=== PATIENT | female | born 1930 | race Caucasian/White ===

== ENCOUNTER 2016-12-01 09:38 | Outpatient (CLI) | payer MEDICARE, BC | END 2016-12-01 09:39 | disposition home or self-care (01) | DX: R41.0 Disorientation, unspecified (principal); N28.9 Disorder of kidney and ureter, unspecified; I10 Essential (primary) hypertension ==

== ENCOUNTER 2016-12-05 14:52 | Observation (INO) | payer MEDICARE, BC ==
[2016-12-05] MEDS ORDERED: SODIUM CHLORIDE 0.9% 1,000 ML IV ONE (16:23)
[2016-12-05] MEDS ORDERED: ASPIRIN 325 MG TABLET PO STA (17:33)
[2016-12-05] MEDS ORDERED: ASPIRIN CHEW 81 MG TABLET ONE (17:42)
[2016-12-05] MEDS ORDERED: SODIUM CHLORIDE FLUSH 0.9% 10 ML SYRINGE IVP PRN (18:30)
[2016-12-05] MEDS ORDERED: ONDANSETRON 4 MG/2 ML VIAL IVP PRN (18:30)
[2016-12-05] MEDS ORDERED: HYDROcod/ACETAM 5/325 MG TABLET PO PRN (18:30)
[2016-12-05] MEDS ORDERED: hydrALAZINE INJ 20 MG/ML VIAL IVP PRN (18:57)
[2016-12-05] MEDS: SODIUM CHLORIDE FLUSH 0.9% 10 ML SYRINGE IVP SCH (20:14)
[2016-12-05] MEDS: SODIUM CHLORIDE 0.45% 1,000 ML IV SCH (20:14)
[2016-12-05] MEDS: BRINZOLAMIDE 1% OPHTH DROPS EACHEYE SCH (20:23)
[2016-12-05] MEDS ORDERED: ATORVASTATIN 10 MG TABLET PO SCH (21:00)
[2016-12-06] MEDS: SODIUM CHLORIDE FLUSH 0.9% 10 ML SYRINGE IVP SCH (05:55)
[2016-12-06] MEDS ORDERED: amLODIPine 5 MG TABLET PO SCH ×2 (09:00)
[2016-12-06] MEDS ORDERED: ENOXAPARIN 40 MG/0.4 ML SYRINGE SUBQ SCH (09:00)
[2016-12-06] MEDS ORDERED: ASPIRIN EC 81 MG TABLET PO SCH (09:00)
[2016-12-06] MEDS ORDERED: LOSARTAN 50 MG TABLET PO SCH (09:00)
[2016-12-06] MEDS ORDERED: POLYETHYLENE GLYCOL 3350 17 GM PACKET PO SCH (09:00)
[2016-12-06] MEDS ORDERED: FAMOTIDINE 20 MG TABLET PO SCH (09:00)
[2016-12-06] MEDS: SODIUM CHLORIDE 0.45% 1,000 ML IV SCH (09:03)
[2016-12-06] MEDS: BRINZOLAMIDE 1% OPHTH DROPS EACHEYE SCH (09:03)
[2016-12-06] MEDS ORDERED: MORPHINE 2 MG/ML SYRINGE IVP PRN (11:00)
== END 2016-12-06 15:22 | disposition home or self-care (01) ==
DX: E86.0 Dehydration (principal); R26.89 Other abnormalities of gait and mobility; K59.00 Constipation, unspecified; Z95.0 Presence of cardiac pacemaker; I10 Essential (primary) hypertension; I45.10 Unspecified right bundle-branch block; Z79.82 Long term (current) use of aspirin; R19.7 Diarrhea, unspecified; K57.30 Diverticulosis of large intestine without perforation or abscess without bleeding; E78.00 Pure hypercholesterolemia, unspecified; H40.9 Unspecified glaucoma; H35.30 Unspecified macular degeneration; Z85.038 Personal history of other malignant neoplasm of large intestine; Z85.828 Personal history of other malignant neoplasm of skin; Z88.2 Allergy status to sulfonamides; Z88.0 Allergy status to penicillin; Z88.8 Allergy status to other drugs, medicaments and biological substances; Z91.81 History of falling; Z90.49 Acquired absence of other specified parts of digestive tract
CPT/HCPCS: 36415; 70450; 74000; 80048; 80053; 81003; 83540; 83605; 83690; 83735; 84295; 84466; 84484; 85025; 93005; 93010; 93306; 93880; 96360; 96361; 96372; 99284; 99285; A9270; G0378; J1650

== ENCOUNTER 2016-12-22 17:32 | Inpatient (IN) | payer MEDICARE, BC ==
[2016-12-22] MEDS ORDERED: cefTRIAXone 1 GM in SODIUM CHLORIDE 0.9% MINIBAG 100 ML IV STA (19:04)
[2016-12-22] MEDS ORDERED: cefTRIAXone 1 GM VIAL ONE (19:07)
[2016-12-22] MEDS ORDERED: SODIUM CHLORIDE 0.9% 1,000 ML IV ONE (19:07)
[2016-12-22] MEDS ORDERED: HYDROcod/ACETAM 5/325 MG TABLET PO PRN (20:31)
[2016-12-22] MEDS ORDERED: ACETAMINOPHEN 325 MG TABLET PO PRN (20:31)
[2016-12-22] MEDS ORDERED: SODIUM CHLORIDE 0.9% 1,000 ML IV SCH (21:00)
[2016-12-22] MEDS: ATORVASTATIN 10 MG TABLET PO SCH (22:06)
[2016-12-22] MEDS: SODIUM CHLORIDE FLUSH 0.9% 10 ML SYRINGE IVP SCH (22:06)
[2016-12-23] MEDS: BRINZOLAMIDE 1% OPHTH DROPS EACHEYE SCH ×3 (07:23→20:52)
[2016-12-23] MEDS ORDERED: DEXTROSE 5% 1,000 ML IV SCH (08:00)
[2016-12-23] MEDS ORDERED: WHEAT DEXTRIN POWDER PACKET PO PRN (08:29)
[2016-12-23] MEDS ORDERED: cefTRIAXone 500 MG VIAL IVP SCH (09:00)
[2016-12-23] MEDS: SODIUM CHLORIDE FLUSH 0.9% 10 ML SYRINGE IVP SCH ×3 (09:03→20:55)
[2016-12-23] MEDS: LOSARTAN 50 MG TABLET PO SCH (09:04)
[2016-12-23] MEDS: amLODIPine 5 MG TABLET PO SCH (09:04)
[2016-12-23] MEDS: cefTRIAXone 1 GM in SODIUM CHLORIDE 0.9% MINIBAG 100 ML IV SCH (09:04)
[2016-12-23] MEDS: ASPIRIN EC 81 MG TABLET PO SCH (09:05)
[2016-12-23] MEDS ORDERED: PSYLLIUM PACKET PO PRN (09:15)
[2016-12-23] MEDS: POLYETHYLENE GLYCOL 3350 17 GM PACKET PO SCH (09:52)
[2016-12-23] MEDS: SODIUM CHLORIDE FLUSH 0.9% 10 ML SYRINGE IVP PRN (10:16)
[2016-12-23] MEDS: ATORVASTATIN 10 MG TABLET PO SCH (20:51)
[2016-12-24] MEDS: SODIUM CHLORIDE FLUSH 0.9% 10 ML SYRINGE IVP SCH (06:14)
[2016-12-24] MEDS: POLYETHYLENE GLYCOL 3350 17 GM PACKET PO SCH (08:23)
[2016-12-24] MEDS: ASPIRIN EC 81 MG TABLET PO SCH (08:26)
[2016-12-24] MEDS: BRINZOLAMIDE 1% OPHTH DROPS EACHEYE SCH (08:26)
[2016-12-24] MEDS: cefTRIAXone 1 GM in SODIUM CHLORIDE 0.9% MINIBAG 100 ML IV SCH (08:26)
[2016-12-24] MEDS: LOSARTAN 50 MG TABLET PO SCH (08:26)
[2016-12-24] MEDS: amLODIPine 5 MG TABLET PO SCH (08:26)
[2016-12-24] MEDS: SODIUM CHLORIDE FLUSH 0.9% 10 ML SYRINGE IVP PRN (08:32)
== END 2016-12-24 09:34 | disposition home or self-care (01) | DRG 690 ==
DX: N30.00 Acute cystitis without hematuria (principal); E87.1 Hypo-osmolality and hyponatremia; I10 Essential (primary) hypertension; I49.9 Cardiac arrhythmia, unspecified; E78.00 Pure hypercholesterolemia, unspecified; B96.20 Unspecified Escherichia coli [E. coli] as the cause of diseases classified elsewhere; E87.70 Fluid overload, unspecified; K59.00 Constipation, unspecified; R19.7 Diarrhea, unspecified; I12.9 Hypertensive chronic kidney disease with stage 1 through stage 4 chronic kidney disease, or unspecified chronic kidney disease; N18.9 Chronic kidney disease, unspecified; I45.9 Conduction disorder, unspecified; Z66 Do not resuscitate; Z85.038 Personal history of other malignant neoplasm of large intestine; Z90.49 Acquired absence of other specified parts of digestive tract; Z95.0 Presence of cardiac pacemaker; Z79.82 Long term (current) use of aspirin; Z85.828 Personal history of other malignant neoplasm of skin; Z87.19 Personal history of other diseases of the digestive system

== ENCOUNTER 2016-12-29 13:14 | Outpatient (CLI) | payer MEDICARE, BC | END 2016-12-29 13:15 | disposition home or self-care (01) | DX: R41.0 Disorientation, unspecified (principal); N28.9 Disorder of kidney and ureter, unspecified; I10 Essential (primary) hypertension ==

== ENCOUNTER 2017-02-05 14:08 | Outpatient (CLI) | payer MEDICARE, BC | END 2017-02-05 14:09 | disposition home or self-care (01) | DX: E87.1 Hypo-osmolality and hyponatremia (principal); R41.0 Disorientation, unspecified; N28.9 Disorder of kidney and ureter, unspecified; I10 Essential (primary) hypertension ==

== ENCOUNTER 2017-10-05 11:11 | Emergency (ER) | payer MEDICARE, BC ==
[2017-10-05 12:14] LABS: BASOPHILS % (AUTO) 0.3 %; EOSINOPHILS # (AUTO) 0.1 10^3/uL (0.0-0.7); EOSINOPHILS % (AUTO) 0.8 %; HGB - HEMOGLOBIN 12.9 g/dL (12.0-16.0); LYMPHOCYTES # (AUTO) 2.7 10^3/uL (1.5-3.5); LYMPHOCYTES % (AUTO) 30.7 %; MEAN CORPUSCULAR HEMOGLOBIN 27.5 pg (27.0-31.0); MEAN CORPUSCULAR HGB CONC 32.8 g/dL (32.0-36.0); MEAN PLATELET VOLUME 8.1 fL (7.9-10.8); MONOCYTES # (AUTO) 0.5 10^3/uL (0.0-1.0); NEUTROPHILS # (AUTO) 5.5 10^3/uL (1.5-6.6); NEUTROPHILS % (AUTO) 62.2 %; PLT - PLATELET COUNT 178 10^3/uL (130-450); RED CELL DISTRIBUTION WIDTH 14.9 % (12.0-15.0); WHITE BLOOD COUNT 8.8 x10^3/uL (4.8-10.8)
[2017-10-05 12:28] LABS: ALBUMIN 4.1 g/dL (3.2-5.5); ALBUMIN/GLOBULIN RATIO 1.3 (1.0-2.2); BILIRUBIN,TOTAL 0.5 mg/dL (0.2-1.0); CALCIUM 9.5 mg/dL (8.5-10.3); TOTAL PROTEIN 7.2 g/dL (6.7-8.2)
--- NOTE | 2017-10-05 13:24 | ED Physician Documentation ---
PD HPI FOCAL NEURO - Stated complaint Stated Complaint: CONFUSION - Chief complaint Chief Complaint: Neuro - History obtained from History obtained from: Patient, Family - History of Present Illness Timing - onset: Other (This is an 87-year-old woman with history of pacemaker who was admitted in [place] for hyponatremia in August. She also had a recent UTI. She presents with several days of increasing somnolence, confusion. Per the son she would normally know the date and who the president was, she can name neither now, she has no specific complaints. She denies headache, pedal edema, shortness of breath, chest pain.) Review of Systems Ten Systems: 10 systems reviewed and negative Constitutional: denies: Fever, Chills Cardiac: denies: Chest pain / pressure, Palpitations Respiratory: denies: Dyspnea, Cough PD PAST MEDICAL HISTORY - Past Medical History Cardiovascular: Hypertension, High cholesterol, Arrhythmia, Other Respiratory: Asthma, Shortness of breath Endocrine/Autoimmune: None GI: Colon polyps : None HEENT: Glaucoma, Macular degeneration, Other Psych: Claustrophobia Musculoskeletal: Osteoarthritis, Osteoporosis Derm: Other - Past Surgical History Past Surgical History: Yes General: Cholecystectomy, Appendectomy, 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 Cardiovascular: Pacemaker HEENT: Cataracts - Present Medications Home Medications: Ambulatory Orders Medication Instructions Recorded Confirmed Aspirin [Aspir 81] 81 mg PO DAILY 08/19/13 10/05/17 Losartan [Cozaar] 100 mg PO DAILY 08/19/13 10/05/17 Atorvastatin [Lipitor] 20 mg PO QPM 07/25/16 10/05/17 Brinzolamide [Azopt] 1 drop EACHEYE BID 07/25/16 10/05/17 amLODIPine [Norvasc] 5 mg ORAL DAILY 07/25/16 10/05/17 Acetaminophen [Tylenol] 650 mg PO Q4HR PRN #0 tablet 12/24/16 10/05/17 Latanoprost 1 drops EACHEYE DAILY 10/05/17 10/05/17 Levofloxacin [Levaquin] 250 mg PO DAILY #3 tablet 10/05/17 Spironolactone 1 tab PO DAILY 10/05/17 10/05/17 - Allergies Allergies/Adverse Reactions: Allergies Allergy/AdvReac Type Severity Reaction Status Date / Time penicillin V potassium * Allergy Unknown unknown Verified 10/05/17 11:30 [From Clementine Roper] Sulfa (Sulfonamide Allergy Unknown unknown Verified 10/05/17 11:30 Antibiotics) lisinopril AdvReac Unknown unknown Verified 10/05/17 11:30 - Social History Does the pt smoke?: No Smoking Status: Never smoker Does the pt drink ETOH?: No Does the pt have substance abuse?: No - Immunizations Immunizations are current?: Yes - POLST Patient has POLST: No PD ED PE NORMAL - Vitals Vital signs reviewed: Yes - General General: Other (She is oriented to person and place but not time, 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 She thinks it is August 2017 but she has a hard time coming up with 2016. 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, Normal speech Eye Opening: Spontaneous Motor: Obeys Commands Verbal: Confused GCS Score: 14 - Psych Psych: Normal mood, Normal affect Results - Vitals Vitals: Vital Signs - 24 hr 10/05/17 10/05/17 11:25 13:12 Temperature 35.6 C L Heart Rate 69 63 Respiratory 16 17 Rate Blood Pressure 155/78 H 174/89 H O2 Saturation 99 96 Oxygen O2 Source Room air - Labs Labs: Laboratory Tests 10/05/17 10/05/17 10/05/17 12:07 12:07 14:25 WBC 8.8 RBC 4.70 Hgb 12.9 Hct 39.4 MCV 84.0 MCH 27.5 MCHC 32.8 RDW 14.9 Plt Count 178 MPV 8.1 Neut # 5.5 Lymph # 2.7 [place] # 0.5 Eos # 0.1 Baso # 0.0 Absolute Nucleated RBC 0.00 Nucleated RBC % 0.0 Sodium 135 Potassium 4.5 Chloride 97 L Carbon Dioxide 28 Anion Gap 10.0 BUN 32 H Creatinine 1.0 Estimated GFR (MDRD) 52 L Glucose 144 H Calcium 9.5 Total Bilirubin 0.5 AST 43 H ALT 38 Alkaline Phosphatase 93 Total Protein 7.2 Albumin 4.1 Globulin 3.1 Albumin/Globulin Ratio 1.3 Lipase 49 Urine Color YELLOW Urine Clarity CLEAR Urine pH 6.5 Ur Specific [place] 1.010 Urine Protein NEGATIVE Urine Glucose (UA) NEGATIVE Urine Ketones NEGATIVE Urine Occult Blood NEGATIVE Urine Nitrite POSITIVE H Urine Bilirubin NEGATIVE Urine Urobilinogen 0.2 (NORMAL) Ur Leukocyte Esterase TRACE H Urine RBC None Seen Urine WBC 4-5 Ur Squamous Epith Cells RARE Squamous Urine Bacteria Many H Ur Microscopic Review INDICATED Urine Culture Comments INDICATED - Rads (name of study) CT Head Radiology: EMP read contemporaneously (age related chgs, NAD) 2v chest Radiology: EMP read contemporaneously (borderline cardiomegaly, NAD) PD MEDICAL DECISION MAKING - ED course ED course: 87-year-old woman with recent admission for electrolyte abnormalities could not presents with confusion similar to prior but her electrolytes are fine and is found to have a UTI. She does not appear significantly ill and the family felt comfortable watching her at home. Departure - Departure Disposition: Home, Self Care Clinical Impression: Urinary tract infection Qualifiers: Urinary tract infection type: site unspecified Hematuria presence: without hematuria Qualified Code(s): N39.0 - Urinary tract infection, site not specified Altered mental status Qualifiers: Altered mental status type: disorientation Qualified Code(s): R41.0 - Disorientation, unspecified Condition: Good Record reviewed to determine appropriate education?: Yes Instructions: ED UTI Cystitis Female Prescriptions: Levofloxacin [Levaquin] 250 mg PO DAILY #3 tablet Comments: Call your doctor to arrange a follow-up appointment, make the next available appointment. In the interim, return anytime if worse or if new symptoms develop. Your blood pressure was elevated today on check into the emergency department. This does not mean that you have hypertension, it is a common phenomenon to come to the emergency department and have elevated blood pressure. I recommend that you see your primary care physician within the week to have it rechecked when you are feeling better. We will culture your urine, the results should be done in 48-72 hours. If an antibiotic change is necessary we will call you. Return if worse in the meantime, especially if you develop increasing flank pain, fevers, or cannot keep down the medication.
--- NOTE | 2017-10-05 13:55 | CT Report ---
EXAM: CT HEAD EXAM DATE: 10/05/2017 01:34 PM. CLINICAL HISTORY: Altered. COMPARISON: 12/22/2016. TECHNIQUE: Multiaxial CT images were obtained from the foramen magnum to the vertex. Reformats: Coron al. IV contrast: None. In accordance with CT protocol optimization, one or more of the following dose reduction techniques w ere utilized for this exam: automated exposure control, adjustment of mA and/or KV based on patient s ize, or use of iterative reconstructive technique. FINDINGS: Parenchyma: No intraparenchymal hemorrhage. No evidence of mass, midline shift, or CT findings of inf arction. [place]-white differentiation is distinct. Extraaxial Spaces: No change. No subdural or epidural collections identified. Ventricles: Normal in size and position. Sinuses and Orbits: Imaged paranasal sinuses, orbits, and mastoids show no significant abnormality. Bones: No evidence of fracture or calvarial defect. Other: None. IMPRESSION: No acute or focal intracranial abnormality. [facility] Referring Provider Line: [phone] SITE ID: [id number]
--- NOTE | 2017-10-05 13:58 | XRAY Report ---
EXAM: CHEST RADIOGRAPHY EXAM DATE: 10/05/2017 01:39 PM. CLINICAL HISTORY: Diminished R base BS. COMPARISON: 12/22/2016. TECHNIQUE: 2 views. FINDINGS: Lungs/Pleura: No focal opacities evident. No pleural effusion. No pneumothorax. Normal volumes. Mediastinum: Pacemaker leads are seen in the right atrium and right ventricle. The heart size is bord darrius enlarged. There is mild aortic tortuosity. Other: None. IMPRESSION: Borderline cardiomegaly. No acute airspace disease. [facility] Referring Provider Line: [phone] SITE ID: [id number]
[2017-10-05 14:36] LABS: BILIRUBIN,URINE NEGATIVE (NEGATIVE); CLARITY,URINE CLEAR (CLEAR); GLUCOSE, URINE (UA) NEGATIVE (NEGATIVE); KETONES,URINE (UA) NEGATIVE (NEGATIVE); LEUKOCYTE ESTERASE, URINE TRACE (NEGATIVE); NITRITE,URINE POSITIVE (NEGATIVE); OCCULT BLOOD,URINE NEGATIVE (NEGATIVE); PH,URINE 6.5 PH (5.0-7.5); PROTEIN,URINE NEGATIVE (NEGATIVE); UROBILINOGEN,URINE 0.2 (NORMAL) E.U./dL (NORMAL)
[2017-10-05 14:47] LABS: BACTERIA,URINE Many /HPF (None Seen); RBC,URINE None Seen /HPF (0-5); SQUAMOUS EPITHELIAL CELL,UR RARE Squamous (<= Few)
[2017-10-05] MEDS ORDERED: levoFLOXacin 250 MG TABLET PO STA (14:51)
[2017-10-05 15:08] VITALS: BP 131/11
== END 2017-10-05 15:16 | disposition home or self-care (01) ==
LOC: ED 11:11
DX: N39.0 Urinary tract infection, site not specified (principal); R41.0 Disorientation, unspecified; Z87.440 Personal history of urinary (tract) infections; Z95.0 Presence of cardiac pacemaker; I10 Essential (primary) hypertension; E78.00 Pure hypercholesterolemia, unspecified; I49.9 Cardiac arrhythmia, unspecified; J45.909 Unspecified asthma, uncomplicated; Z86.010 Personal history of colon polyps; M19.90 Unspecified osteoarthritis, unspecified site; M81.0 Age-related osteoporosis without current pathological fracture; Z79.82 Long term (current) use of aspirin
CPT/HCPCS: 36415; 70450; 71046; 80053; 81001; 83690; 85025; 87086; 87181; 99283; 99284; A9270; 81003

== ENCOUNTER 2017-10-09 08:00 | Outpatient (CLI) | payer MEDICARE, BC ==
[2017-10-09 18:33] LABS: BILIRUBIN,URINE NEGATIVE (NEGATIVE); GLUCOSE, URINE (UA) NEGATIVE (NEGATIVE); KETONES,URINE (UA) NEGATIVE (NEGATIVE); LEUKOCYTE ESTERASE, URINE NEGATIVE (NEGATIVE); NITRITE,URINE NEGATIVE (NEGATIVE); OCCULT BLOOD,URINE NEGATIVE (NEGATIVE); PROTEIN,URINE NEGATIVE (NEGATIVE); UROBILINOGEN,URINE 0.2 (NORMAL) E.U./dL (NORMAL)
[2017-10-09 18:41] LABS: CLARITY,URINE CLEAR (CLEAR); RBC,URINE 0-5 /HPF (0-5)
[2017-10-09 18:42] LABS: BACTERIA,URINE None Seen /HPF (None Seen); SQUAMOUS EPITHELIAL CELL,UR RARE Squamous (<= Few)
== END 2017-10-09 08:01 | disposition home or self-care (01) ==
LOC: LAB.R 08:00
PROVIDERS: ATTEND Nurse Practitioner Family
DX: R41.0 Disorientation, unspecified (principal)
CPT/HCPCS: 81001; 87086

== ENCOUNTER 2017-10-09 15:29 | Outpatient (CLI) | payer MEDICARE, BC ==
[2017-10-09 19:42] LABS: BASOPHILS % (AUTO) 0.3 %; EOSINOPHILS # (AUTO) 0.1 10^3/uL (0.0-0.7); HGB - HEMOGLOBIN 13.2 g/dL (12.0-16.0); LYMPHOCYTES # (AUTO) 2.5 10^3/uL (1.5-3.5); LYMPHOCYTES % (AUTO) 31.9 %; MEAN CORPUSCULAR HEMOGLOBIN 27.1 pg (27.0-31.0); MEAN CORPUSCULAR HGB CONC 31.7 g/dL (32.0-36.0); MEAN CORPUSCULAR VOLUME 85.4 fL (81.0-99.0); MEAN PLATELET VOLUME 8.2 fL (7.9-10.8); MONOCYTES # (AUTO) 0.6 10^3/uL (0.0-1.0); MONOCYTES % (AUTO) 7.2 %; NEUTROPHILS # (AUTO) 4.7 10^3/uL (1.5-6.6); NEUTROPHILS % (AUTO) 59.6 %; PLT - PLATELET COUNT 172 10^3/uL (130-450); RED BLOOD COUNT 4.86 10^6/uL (4.20-5.40); RED CELL DISTRIBUTION WIDTH 14.9 % (12.0-15.0); WHITE BLOOD COUNT 7.9 x10^3/uL (4.8-10.8)
[2017-10-09 20:06] LABS: ALBUMIN/GLOBULIN RATIO 1.2 (1.0-2.2); BILIRUBIN,TOTAL 0.7 mg/dL (0.2-1.0); CALCIUM 9.3 mg/dL (8.5-10.3); CREATININE 0.9 mg/dL (0.4-1.0); TOTAL PROTEIN 7.3 g/dL (6.7-8.2)
== END 2017-10-09 15:30 | disposition home or self-care (01) ==
LOC: LAB.F 15:29
PROVIDERS: ATTEND Nurse Practitioner Family
DX: R41.0 Disorientation, unspecified (principal)
CPT/HCPCS: 36415; 80053; 81001; 85025; 87086

== ENCOUNTER 2017-10-13 10:03 | Emergency (ER) | payer MEDICARE, BC ==
--- NOTE | 2017-10-13 10:18 | ED Physician Documentation ---
PD HPI FOCAL NEURO - Stated complaint Stated Complaint: FACIAL TINGLING/EVLEVATED BP - History obtained from History obtained from: Patient - History of Present Illness Timing - onset: Yesterday Timing - duration: Days (10/02) Timing - details: Gradual onset, Waxing and waning Severity of deficit: Mild Weakness: No: Face Numbness: Face, Left Associated symptoms: Other (feeling anxious and worried. having some elevated BP today as she took it several times, with highest about 180 systolic.). No: Headache, Nausea / vomiting, Head injury, Chest pain Contributing factors: negative: Anticoagulated Baseline status: positive: A&OX3, ambulatory, indep Similar symptoms before: Has not had sx before Recently seen: Clinic (for dysuria and had UTI Rx with Levaquin for 5 days, finished 4 days ago.) Review of Systems Constitutional: denies: Fever, Chills Eyes: denies: Loss of vision, Decreased vision, Photophobia Nose: denies: Rhinorrhea / runny nose, Congestion Throat: denies: Sore throat Cardiac: denies: Chest pain / pressure, Palpitations Respiratory: denies: Dyspnea, Cough GI: denies: Abdominal Pain, Nausea, Vomiting, Diarrhea Skin: denies: Rash, Lesions, Abrasion (s) Musculoskeletal: denies: Neck pain, Back pain, Extremity pain Neurologic: denies: Generalized weakness, Focal weakness, Numbness, Near syncope , Altered mental status, Headache, Head injury Endocrine: denies: Weight loss Immunocompromised: denies: Immunocompromised PD PAST MEDICAL HISTORY - Past Medical History Cardiovascular: Hypertension, High cholesterol, Arrhythmia, Other Respiratory: Asthma, Shortness of breath Endocrine/Autoimmune: None GI: Colon polyps : None HEENT: Glaucoma, Macular degeneration, Other Psych: Claustrophobia Musculoskeletal: Osteoarthritis, Osteoporosis Derm: Other - Past Surgical History Past Surgical History: Yes General: Cholecystectomy, Appendectomy, 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 Cardiovascular: Pacemaker HEENT: Cataracts - Present Medications Home Medications: Ambulatory Orders Medication Instructions Recorded Confirmed Aspirin [Aspir 81] 81 mg PO DAILY 08/19/13 10/13/17 Losartan [Cozaar] 100 mg PO DAILY 08/19/13 10/13/17 Atorvastatin [Lipitor] 20 mg PO QPM 07/25/16 10/13/17 Brinzolamide [Azopt] 1 drop EACHEYE BID 07/25/16 10/13/17 Acetaminophen [Tylenol] 650 mg PO Q4HR PRN #0 tablet 12/24/16 10/13/17 Latanoprost 1 drops EACHEYE DAILY 10/05/17 10/13/17 Spironolactone 1 tab PO DAILY 10/05/17 10/13/17 - Allergies Allergies/Adverse Reactions: Allergies Allergy/AdvReac Type Severity Reaction Status Date / Time penicillin V potassium * Allergy Unknown unknown Verified 10/13/17 10:18 [From Pen-Vee K] Sulfa (Sulfonamide Allergy Unknown unknown Verified 10/13/17 10:18 Antibiotics) lisinopril AdvReac Unknown unknown Verified 10/13/17 10:18 - Social History Does the pt smoke?: No Smoking Status: Never smoker Does the pt drink ETOH?: No Does the pt have substance abuse?: No - Family History Family history: denies: Cerebral aneurysm - Immunizations Immunizations are current?: Yes - POLST Patient has POLST: No PD ED PE NORMAL - Vitals Vital signs reviewed: Yes - General General: Alert and oriented X 3, No acute distress, Well developed/nourished - HEENT HEENT: PERRL, EOMI, Ears normal, Pharynx benign - Neck Neck: Supple, no meningeal sign, No adenopathy - Cardiac Cardiac: RRR, No murmur - Respiratory Respiratory: Clear bilaterally - Abdomen Abdomen: Soft, Non tender - Derm Derm: Normal color, Warm and dry, No rash - Neuro Neuro: Alert and oriented X 3, 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 No: Normal affect (somewhat anxious) NIHSS - Level of Consciousness Level of consciousness: (0) Alert, Keenly responsive LOC Questions: (0) Answers both Q's correct LOC Commands: (0) Performs both correctly - Gaze Best Gaze: (0) Normal - Visual Visual: (0) No loss - Facial Palsy Facial Palsy: (0) Normal, symmetrical movement - Motor Arms (both separate) Motor Arm (right): (0) No drift Motor Arm (left): (0) No drift - Motor Legs (both separate) Motor Leg (right): (0) No drift Motor Leg (left): (0) No drift - Limb Ataxia Limb Ataxia: (0) Absent - Sensory Sensory: (0) Normal - Best Language Best Language: (0) No aphasia - Dysarthria Dysarthria: (0) Normal - Extinction and Inattention (formally neg Extinction and inattention: (0) No abnormality - Total Score/Results Total Score/Result: 0 Results - Vitals Vitals: Vital Signs - 24 hr 10/13/17 10/13/17 10:13 12:03 Heart Rate 63 60 Respiratory 14 16 Rate Blood Pressure 158/107 H 139/70 H O2 Saturation 97 98 Oxygen O2 Source Room air - Labs Labs: Laboratory Tests 10/13/17 10/13/17 10/13/17 11:15 11:15 11:15 WBC 7.8 RBC 4.72 Hgb 13.0 Hct 39.3 MCV 83.4 MCH 27.5 MCHC 33.0 RDW 14.7 Plt Count 177 MPV 7.9 Neut # 5.2 Lymph # 2.1 [place] # 0.4 Eos # 0.1 Baso # 0.0 Absolute Nucleated RBC 0.00 Nucleated RBC % 0.0 ESR 14 Sodium 140 Potassium 4.3 Chloride 101 Carbon Dioxide 23 Anion Gap 16.0 H BUN 24 H Creatinine 0.9 Estimated GFR (MDRD) 59 L Glucose 96 Lactic Acid Calcium 9.6 Magnesium 1.9 Total Bilirubin 0.6 AST 50 H ALT 46 Alkaline Phosphatase 85 Total Protein 6.7 Albumin 3.6 Globulin 3.1 Albumin/Globulin Ratio 1.2 Lipase 59 H Urine Color Urine Clarity Urine pH Ur Specific [place] Urine Protein Urine Glucose (UA) Urine Ketones Urine Occult Blood Urine Nitrite Urine Bilirubin Urine Urobilinogen Ur Leukocyte Esterase Ur Microscopic Review Urine Culture Comments 10/13/17 10/13/17 11:30 12:44 WBC RBC Hgb Hct MCV MCH MCHC RDW Plt Count MPV Neut # Lymph # [place] # Eos # Baso # Absolute Nucleated RBC Nucleated RBC % ESR Sodium Potassium Chloride Carbon Dioxide Anion Gap BUN Creatinine Estimated GFR (MDRD) Glucose Lactic Acid 0.7 Calcium Magnesium Total Bilirubin AST ALT Alkaline Phosphatase Total Protein Albumin Globulin Albumin/Globulin Ratio Lipase Urine Color YELLOW Urine Clarity CLEAR Urine pH 7.0 Ur Specific [place] <=1.005 Urine Protein NEGATIVE Urine Glucose (UA) NEGATIVE Urine Ketones NEGATIVE Urine Occult Blood NEGATIVE Urine Nitrite NEGATIVE Urine Bilirubin NEGATIVE Urine Urobilinogen 0.2 (NORMAL) Ur Leukocyte Esterase NEGATIVE Ur Microscopic Review NOT INDICATED Urine Culture Comments NOT INDICATED PD MEDICAL DECISION MAKING - ED course Complexity details: reviewed results, considered differential (has some tingling left face that then spread to bridge of nose and right cheek. No droop , no weakness. Does not seem to be stroke pattern to it. Presume peripheral nerve or metabolic cause. Will check lytes, ESR, blood count. Had had recent UTI Rx with Levaquin, which finished 4 days ago, but consider paresthesias side effect of the quinolone (listed in [facility] as common side effect). ), d/w patient Departure - Departure Disposition: 01 Home, Self Care Clinical Impression: Facial numbness, Weakness, Elevated blood pressure reading Condition: Stable Record reviewed to determine appropriate education?: Yes Instructions: ED Paraesthesias Follow-Up: CIARRA SPEARS MD [Primary Care Provider] - Comments: The symptoms of weakness and tiredness and numbness on the face could potentially still be lingering side effects from the Levaquin antibiotic you had had. The urine looks clear now so there is no recurrent infection. Your electrolytes are looking okay as well. The blood pressure being elevated I think was responsive to the symptoms and situation and not the cause of the symptoms. I would to see how your blood pressure does on current medications. Follow-up with your primary care later this week. Looking at your medicine list , sometimes the cholesterol medicines (statins) may associate with some of the symptoms. He could consider holding that for the next couple weeks as well. Discharge Date/Time: 10/13/17 14:00
[2017-10-13] MEDS ORDERED: SODIUM CHLORIDE 0.9% 1,000 ML IV ONE (11:06)
[2017-10-13 11:31] LABS: BASOPHILS % (AUTO) 0.2 %; EOSINOPHILS # (AUTO) 0.1 10^3/uL (0.0-0.7); EOSINOPHILS % (AUTO) 0.8 %; LYMPHOCYTES # (AUTO) 2.1 10^3/uL (1.5-3.5); LYMPHOCYTES % (AUTO) 26.8 %; MEAN CORPUSCULAR HEMOGLOBIN 27.5 pg (27.0-31.0); MEAN CORPUSCULAR VOLUME 83.4 fL (81.0-99.0); MEAN PLATELET VOLUME 7.9 fL (7.9-10.8); MONOCYTES # (AUTO) 0.4 10^3/uL (0.0-1.0); MONOCYTES % (AUTO) 4.9 %; NEUTROPHILS # (AUTO) 5.2 10^3/uL (1.5-6.6); NEUTROPHILS % (AUTO) 67.3 %; PLT - PLATELET COUNT 177 10^3/uL (130-450); RED BLOOD COUNT 4.72 10^6/uL (4.20-5.40); RED CELL DISTRIBUTION WIDTH 14.7 % (12.0-15.0); WHITE BLOOD COUNT 7.8 x10^3/uL (4.8-10.8)
[2017-10-13 11:45] LABS: ALBUMIN 3.6 g/dL (3.2-5.5); ALBUMIN/GLOBULIN RATIO 1.2 (1.0-2.2); BILIRUBIN,TOTAL 0.6 mg/dL (0.2-1.0); CALCIUM 9.6 mg/dL (8.5-10.3); CREATININE 0.9 mg/dL (0.4-1.0); MAGNESIUM 1.9 mg/dL (1.7-2.8); TOTAL PROTEIN 6.7 g/dL (6.7-8.2)
[2017-10-13 12:04] VITALS: BP 139/70
[2017-10-13 13:20] LABS: BILIRUBIN,URINE NEGATIVE (NEGATIVE); GLUCOSE, URINE (UA) NEGATIVE (NEGATIVE); KETONES,URINE (UA) NEGATIVE (NEGATIVE); LEUKOCYTE ESTERASE, URINE NEGATIVE (NEGATIVE); NITRITE,URINE NEGATIVE (NEGATIVE); OCCULT BLOOD,URINE NEGATIVE (NEGATIVE); PROTEIN,URINE NEGATIVE (NEGATIVE); UROBILINOGEN,URINE 0.2 (NORMAL) E.U./dL (NORMAL)
[2017-10-13 13:23] LABS: CLARITY,URINE CLEAR (CLEAR)
== END 2017-10-13 14:00 | disposition home or self-care (01) ==
LOC: ED 10:03
DX: I10 Essential (primary) hypertension (principal); R20.0 Anesthesia of skin; R53.1 Weakness; E78.00 Pure hypercholesterolemia, unspecified; I49.9 Cardiac arrhythmia, unspecified; J45.909 Unspecified asthma, uncomplicated; Z95.0 Presence of cardiac pacemaker; Z09 Encounter for follow-up examination after completed treatment for conditions other than malignant neoplasm; Z86.010 Personal history of colon polyps; M19.90 Unspecified osteoarthritis, unspecified site; Z79.82 Long term (current) use of aspirin
CPT/HCPCS: 36415; 80053; 81001; 81003; 83605; 83690; 83735; 85025; 85651; 87086; 96360; 96361; 99283; 99284

== ENCOUNTER 2017-11-07 14:15 | Outpatient (CLI) | payer MEDICARE, BC ==
--- NOTE | 2017-11-07 21:14 | CONSULTATION NOTE ---
Palliative Care Consultation - Referral Referring Provider: Dr Dusty Gil Time of Visit: 11/07/2017 14:15 - 15:45 Referral setting: Home (Seen in home setting due to taxing and considerable effort required to leave the home secondary to dementia and unsteadiness when ambulating.) - Information Sources Records reviewed: Previous records reviewed History/Review of Systems obtained from: Patient, Family - History of Present Illness Brief History of Present Illness: Thank you, Dr. Gil for asking the palliative care consult service to be involved in the care of your patient. I am asked to provide support regarding symptom management, behavioral disturbance/sundowners, advanced care planning and transition to hospice when patient meets criteria. This is an 87-year-old woman with history of pacemaker placement secondary to arrhythmia, HTN, HLD, glaucoma, macular degeneration, colon polyps, osteoarthritis, osteoporosis. She has had several recent trips to the ER in the past two months. 10/05/2017 to ER after several days of increasing somnolence and confusion, and was discharged home with Levaquin for a UTI. She went to the ER a week later on 10/13 for facial tingling and elevated BP, likely a reaction to the Levaquin, and she was again discharged home. Her hospitalizations/ER visits in 2016 were for hyponatremia in August 2017 at [place], and earlier that year, 12/22/2016, hospitalized for hyponatremia/ mild water intoxication and UTI, treated with Rocephin and then oral antibiotic. That same month, on 12/05/2016 she had been hospitalized for dehydration and alternating constipation/diarrhea. The family was present today at the visit. This included 3 of her 4 adult sons: son Surya who lives on the property and is her DPOA; son Jefferson, from [place], was with his ; son Dallas from [place]; and Augustus a female cousin who lives nearby. Another son, Barak who is the 2nd DPOA, lives in [place], but he was not present. The family flew here over the weekend to help Surya out and plan how to care for their mother going forward. After the recent UTI, she had a marked increase in agitation and hallucinations both visual and auditory. The one son, Surya, who lives in a cabin on the patient 's property, started staying in the house with her and realized that she was having "sundowners" and not sleeping at night. She became quite active and agitated, interacting with the hallucinatory visions, and following their advice when "the people" told her to not believe her son, that he was trying to take advantage of her, so she stopped taking medications. At one point she said she "was ready to leave" and stopped eating for a few days. However, since the family has arrived, she has started eating again, in very small amounts. The worst of her agitation and behaviors was last and into the weekend, when the hallucinations and increased activities and agitation greatly increased. They had been in to see her PCP, and were prescribed quetiapine and lorazepam, with instructions to use the quetiapine first. She had one dose of quetiapine 25 mg, and Surya reports this is when she "took off" with significantly increased agitation, hallucinations, and activity. He did not administer any further quetiapine, and is giving her only lorazepam to control agitation and excitement. They have titrated it, and settled on 0.5mg, since a half tab (0.25mg) was not effective. They have noted that since the family has been there, she has become less agitated and the highly increased activities and hallucinations have de- intensified. They note that she is closer to her baseline. They are using lorazepam as needed when she becomes agitated and over active. At this time, the patient is not taking any of her other medications; she had stopped taking them during the period of her heightened agitation. They spoke with the PCP about not giving them to her, and were told to start back on with losartan and clopidogrel, when they do restart. They are planning to not administer them if her BP remains low. I educated on giving HTN medication routinely and not "as needed." The patient exhibits some confusion, but is quite alert, speaks in full sentences, displays a sense of humor, and is mostly aware of what is going on. She does state that during this visit, she was not seeing the "other people." When her in 2007, following a fall and injury to the brain (with hematoma), she started seeing people and presences at night, including her , and these have persisted up to this day. These visions or hallucinations did not speak and interact with her, unlike the more recent hallucinations. Surya, her son, considers these earlier episodes not to be hallucinations, but ghosts or some sore of presence. He does differentiate them from the recent episodes which the patient interacts with, which he agrees are hallucinations. Family states she has balance issues and a history of falls. We discussed risks and sequelae of falls; I encouraged them on the safety precautions they are taking. Medical/Surgical History - Past Medical History Cardiovascular: reports: Hypertension, High cholesterol, Arrhythmia, Other Respiratory: reports: Asthma, Shortness of breath Endocrine/Autoimmune: reports: None GI: reports: Colon polyps : reports: None HEENT: reports: Glaucoma, Macular degeneration Psych: reports: Claustrophobia Musculoskeletal: reports: Osteoarthritis, Osteoporosis Derm: reports: Other MRSA Hx?: No - Past Surgical History General: reports: Cholecystectomy, Appendectomy, Colonoscopy /COMMUNITY SERVICE DIRECTOR: reports: Hysterectomy Cardiovascular: reports: Pacemaker HEENT: reports: Cataracts - Substance History Tobacco Details: Cigarettes (never smoker; no alcohol; no substance abuse) Social History - Living Situation Living arrangement: At home Living Situation: Alone, With family (son lives in a cabin on the property) Support System: One son lives on the patient's property; another son lives in the [facility], and 2 other sons live out of state. A niece lives nearby. Various members of the family are helping out staying with the patient while the family decides on her longer term living situation. Family History - Family History Family History: Mother: , Father: , Other family: Alzheimer's Disease ( with Alzheimer's) Medications/Allergies - Medications Home Medications: Ambulatory Orders Medication Instructions Recorded Confirmed Aspirin [Aspir 81] 81 mg PO DAILY 08/19/13 10/13/17 Losartan [Cozaar] 100 mg PO DAILY 08/19/13 10/13/17 Atorvastatin [Lipitor] 20 mg PO QPM 07/25/16 10/13/17 Brinzolamide [Azopt] 1 drop EACHEYE BID 07/25/16 10/13/17 Acetaminophen [Tylenol] 650 mg PO Q4HR PRN #0 tablet 12/24/16 10/13/17 Latanoprost 1 drops EACHEYE DAILY 10/05/17 10/13/17 Spironolactone 1 tab PO DAILY 10/05/17 10/13/17 LORazepam [Lorazepam] 0.5 mg PO Q6H PRN 11/07/17 11/07/17 - Allergies Allergies/Adverse Reactions: Allergies Allergy/AdvReac Type Severity Reaction Status Date / Time penicillin V potassium * Allergy Unknown unknown Verified 10/13/17 10:18 [From Pen-Vee K] Sulfa (Sulfonamide Allergy Unknown unknown Verified 10/13/17 10:18 Antibiotics) lisinopril AdvReac Unknown unknown Verified 10/13/17 10:18 Review of Systems - Constitutional Constitutional: reports: Fatigue, Poor appetite, Weight loss (Two weeks ago: 144 lbs. one week later: 134 lbs. Reported by family member.) - Eyes Eyes: reports: Vision loss - Ears, Nose & Throat Ears, Nose & Throat: reports: Hearing loss (mild) - Cardiovascular Cardiovascular: reports: Edema (more in left leg than right). denies: Chest pain - Respiratory Respiratory: denies: Wheezing, SOB at rest - Gastrointestinal Gastrointestinal: reports: Constipation (chronic. has BMs every 2-3 days) - Genitourinary Genitourinary: reports: Incontinence. denies: Dysuria - Musculoskeletal Musculoskeletal: reports: Stiffness, Assistive devices (4 wheel walker), Transfer issues (unable to lift herself off of sofa even holding on to the 4WW.) - Neurological Neurological: reports: Abnormal gait (can be unsteady; balance issues) - Psychiatric Psychiatric: reports: Anxiety, Hallucinations, Behavior disturbances - Hematologic/Lymphatic Hematologic/Lymphatic: reports: Recurrent infections (UTIs) Physical Exam - Vital Signs Temperature: 97.1 F Pulse Rate: 69 O2 Saturation: 99 Blood Pressure: 132/80 - Physical Exam General Appearance: positive: No acute distress, Alert Eyes Bilateral: positive: EOMI, No lid inflammation, Conjunctivae nml, No scleral icterus ENT: positive: No signs of dehydration Neck: positive: Thyroid nml, No JVD, Trachea midline Cardiovascular: positive: Regular rate & rhythm, No murmur, No gallop Respiratory: positive: Chest non-tender, No respiratory distress, Breath sounds nml, Diminished throughout Abdomen: positive: Soft, Nml bowel sounds Skin: positive: No symptoms Extremities: positive: Nml appearance, Pedal edema (L greater than R) Neurologic/Psychiatric: positive: Mood/affect nml, Disoriented to time Palliative Care - POLST Patient has POLST: Yes POLST Status: DNR, Comfort Measures Pain: No pain Anxiety: Moderate (4-6) Anorexia: Moderate (4-6) (stopped eating because she was "ready to leave," but has recently started eating again, in small amounts.) Sleep: Variable sleep pattern (Sundowners effect; patient becomes very active and agitated at night, then will "crash" and sleep for 10 hours.) Constipation: Yes Performance Status: Incontinent occasionally, both bladder and bowel; ambulatory with walker; needs help with ADLs and showering; needs help with dressing; is not cooking anymore; used to chop her own firewood until recently, but no longer; balance is unstable. - Palliative Care Discussion: The patient's POLST is DNR and comfort measures. The son says she has repeatedly confirmed this, although she did state she is not opposed to hospitalizations. The patient does say what she wants is to keep her independence; she wants to "walk two miles." She is lacking some self- awareness of her situation. The family does realize it is no longer safe for her to live solo at home, and so they are here to explore and research options. They are considering adult family homes, and looking at assisted living; they did mention [facility]. They are also investigating care giving, but they feel 24-hour care will be prohibitively expensive. The two brothers from [id number] will be going home in a few days. They appear well organized, and [facility] I left them our list of the home care agencies that operate on [facility]. They have also made arrangements for interim care coverage for the patient, with family, and friends of family coming in to help and stay with her until they have decided on the long-term solution. Impression and Recommendations - Palliative Care Impression: This is a anahi 87-year old woman with a pacemaker and dementia with behaviors , including hallucinations with increased agitation and sundowner phenomena, and declining functionality over the past year or so with repeated visits to ER or hosptial, accelerated in the past 2 months. She has a history of UTIs, electrolyte abnormalities, and falls. She has been living independently in her isolated house, but is no longer safe to do so and her family is in the process of researching and deciding on a longer-term living situation. She does not meet medical criteria for hospice, and would benefit from on-going palliative care oversight, with monitoring for appropriate transition to hospice. Recommendations/Counseling Done: Dementia with behaviors and hallucinations: Increased agitation, but with recent improvement. Agitation is currently controlled with lorazepam 0.5mg prn. A trial of quetiapine exacerbated her agitation and hallucinations. Monitor and follow up next week with family regarding efficacy of lorazepam. Consider a trial with a different antipsychotic (risperdal or olanzapine), or possibly changing to alprazolam. HTN: Currently off all meds except lorazepam, by patient choice. BP readings are within normal range; family would like to keep her off the medications as long as BP is low. They had advice to restart losartan and clopidogrel when they do restart. Constipation: Chronic, has bowel movements every 2-3 days. Monitor and consider adding softener or stimulant. Has a history of alternate constipation and diarrhea. Family cancelled a gastroenterology appointment since it occurred during the time of her increased agitation. They will reschedule it. Weight loss: Family reported a 10 lb loss over one week period. She stopped eating for several days, but has very recently restarted. Family has Ensure for her and family members are cooking for her now. Monitor and track weight. Advanced care planning: POLST signed last month with Dr Gil; original is kept near the patient's fridge. DNR and comfort care. Family's priority is finding a safe living situation, either with relocation or engaging care givers. Time Spent: 90 minutes were spent with more than 50% of the time spent on counseling, education, and coordination of care, including medication reconciliation.
== END 2017-11-07 14:16 | disposition home or self-care (01) ==
LOC: PC 14:15
PROVIDERS: ATTEND Nurse Practitioner
DX: Z51.5 Encounter for palliative care (principal); F03.91 Unspecified dementia, unspecified severity, with behavioral disturbance; R44.0 Auditory hallucinations; R44.1 Visual hallucinations; I10 Essential (primary) hypertension; K59.00 Constipation, unspecified; Z95.0 Presence of cardiac pacemaker; F05 Delirium due to known physiological condition; F41.9 Anxiety disorder, unspecified; R45.1 Restlessness and agitation; Z91.81 History of falling; Z79.82 Long term (current) use of aspirin; Z66 Do not resuscitate
CPT/HCPCS: 99345

== ENCOUNTER 2017-11-22 08:00 | Outpatient (CLI) | payer MEDICARE, BC | END 2017-11-22 08:01 | disposition home or self-care (01) | LOC: LAB.R 08:00 | PROVIDERS: ATTEND Family Medicine | DX: N39.0 Urinary tract infection, site not specified (principal) | CPT/HCPCS: 87077; 87086 ==

== ENCOUNTER 2018-01-03 08:00 | Outpatient (CLI) | payer MEDICARE, BC | END 2018-01-03 08:01 | disposition home or self-care (01) | LOC: LAB.R 08:00 | PROVIDERS: ATTEND Family Medicine | DX: N39.0 Urinary tract infection, site not specified (principal) | CPT/HCPCS: 87077; 87086 ==

== ENCOUNTER 2018-01-03 12:25 | Outpatient (CLI) | payer MEDICARE, BC ==
[2018-01-03 18:16] LABS: CALCIUM 8.9 mg/dL (8.5-10.3); CREATININE 0.8 mg/dL (0.4-1.0)
== END 2018-01-03 12:26 | disposition home or self-care (01) ==
LOC: LAB.F 12:25
PROVIDERS: ATTEND Family Medicine
DX: N28.9 Disorder of kidney and ureter, unspecified (principal); N39.0 Urinary tract infection, site not specified; I10 Essential (primary) hypertension
CPT/HCPCS: 36415; 80048; 87077; 87086

== ENCOUNTER 2018-02-01 08:00 | Outpatient (CLI) | payer MEDICARE, BC ==
[2018-02-01 18:34] LABS: BILIRUBIN,URINE NEGATIVE (NEGATIVE); GLUCOSE, URINE (UA) NEGATIVE (NEGATIVE); KETONES,URINE (UA) NEGATIVE (NEGATIVE); LEUKOCYTE ESTERASE, URINE TRACE (NEGATIVE); NITRITE,URINE NEGATIVE (NEGATIVE); OCCULT BLOOD,URINE NEGATIVE (NEGATIVE); PROTEIN,URINE NEGATIVE (NEGATIVE); UROBILINOGEN,URINE 0.2 (NORMAL) E.U./dL (NORMAL)
[2018-02-01 18:39] LABS: CLARITY,URINE CLEAR (CLEAR)
[2018-02-01 18:54] LABS: BACTERIA,URINE Moderate /HPF (None Seen); EPITHELIAL CELLS,UR MOD Transitional /HPF (<= Few); RBC,URINE None Seen /HPF (0-5); SQUAMOUS EPITHELIAL CELL,UR MANY Squamous (<= Few)
== END 2018-02-01 08:01 | disposition home or self-care (01) ==
LOC: LAB.R 08:00
PROVIDERS: ATTEND Nurse Practitioner Family
DX: N39.0 Urinary tract infection, site not specified (principal)
CPT/HCPCS: 81001; 87086